=== PATIENT | female | born 1965 | race Caucasian/White ===

== ENCOUNTER 2018-02-27 14:22 | Emergency (ER) | payer BC ==
[2018-02-27] MEDS: ALBUTEROL 0.083% (NEB) 2.5 MG/3 ML AMP HHN (15:18)
[2018-02-27] MEDS: DEXAMETHASONE 10 MG/ML 1 ML INJ IM (15:38)
== END 2018-02-27 17:04 | disposition home or self-care (01) ==
LOC: FTE 14:22
DX: M25.50 Pain in unspecified joint (principal); R06.2 Wheezing; Z87.891 Personal history of nicotine dependence
CPT/HCPCS: 94664; 96372; 99284-25